=== PATIENT | female | born 1975 | race Caucasian/White ===

== ENCOUNTER 2021-07-09 04:16 | Day surgery (SDC) | payer OTHER ==
[2021-07-09] MEDS ORDERED: LACTATED RINGERS SOLUTION 1000 ML INFUS.BAG IV ONE (04:53)
[2021-07-09] MEDS ORDERED: ACETAMINOPHEN 1000 MG/100 ML BAG IVPB ONE (04:53)
[2021-07-09] MEDS ORDERED: morphine SULFATE IMMEDIATE RELEASE 30 MG TAB PO ONE (04:56)
[2021-07-09] MEDS ORDERED: ACETAMINOPHEN INJECTION 100 ML IVPB ONE (05:10)
[2021-07-09] MEDS ORDERED: morphine SULFATE IMMEDIATE RELEASE 30 MG TAB ONE (05:10)
[2021-07-09] MEDS ORDERED: ONDANSETRON 4 MG/2 ML VIAL IVPUSH ONE ×2 (06:01→09:30)
[2021-07-09] MEDS ORDERED: ONDANSETRON 4 MG/2 ML VIAL ONE ×2 (06:03→10:05)
[2021-07-09 06:27] LABS: CHLORIDE 105 mmol/L (98-107); SODIUM 137 mmol/L (136-145)
[2021-07-09 06:29] LABS: CALCIUM 8.9 mg/dL (8.5-10.1); EPI CELLS 35 /uL (0-25.1); HYALINE CASTS 1 /uL (0-3.1); PH,URINE 8.5 (5.0-8.0); URINE APPEARANCE TURBID; URINE BACTERIA 450 /uL (0-1359); URINE BILIRUBIN NEGATIVE (NEGATIVE); URINE COLOR YELLOW; URINE GLUCOSE (UA) TRACE (NEGATIVE); URINE KETONE TRACE (NEGATIVE); URINE LEUK ESTERASE NEGATIVE (NEGATIVE); URINE NITRITE NEGATIVE (NEGATIVE); URINE PROTEIN 2+ (NEGATIVE); URINE RBC 7 /uL (0-23.9); URINE WBC 11 /uL (0-25.8)
[2021-07-09 06:30] LABS: ANION GAP 4 MMOL/L (8-16); BLOOD UREA NITROGEN 15.8 mg/dL (7-18); CO2 27 mmol/L (21-32); GLUCOSE,RANDOM 259 mg/dL (74-106); LIPASE 70 U/L (73-393)
[2021-07-09 06:33] LABS: CREATININE 0.9 mg/dL (0.55-1.3); SGOT/AST 33 U/L (15-37); SGPT/ALT 49 U/L (13-61)
[2021-07-09 06:34] LABS: BILIRUBIN,TOTAL 0.4 mg/dL (0.2-1); TOT PROT 7.9 g/dl (6.4-8.2)
[2021-07-09 06:36] LABS: ALK PHOS 145 U/L (45-117)
[2021-07-09 06:37] LABS: INR 0.97 (0.83-1.09); PROTHROMBIN TIME (PATIENT) 11.4 SEC (9.7-13.0)
[2021-07-09 06:40] LABS: ACTIVATED PTT 24.8 SECONDS (25.2-36.5)
[2021-07-09 06:41] LABS: BASO % 0.3 % (0-2.0); EOS % 0.5 % (0-4.5); HEMOGLOBIN 13.9 GM/dL (10.7-15.3); LYMPH % 11.8 % (8-40); MCH 31.1 pg (25.7-33.7); MCHC 34.6 g/dl (32.0-36.0); MEAN CELL VOLUME 89.9 fl (80-96); MEAN PLT VOLUME 7.4 fl (7.5-11.1); MONO % 4.4 % (3.8-10.2); PLATELET COUNT 310 10^3/uL (134-434); RBC 4.45 M/mm3 (3.60-5.2); RDW 13.6 % (11.6-15.6); WHITE BLOOD COUNT 11.3 K/mm3 (4.0-10.0)
[2021-07-09] MEDS ORDERED: metFORMIN HCL 500 MG TABLET (FP) PO ONE (06:42)
[2021-07-09] MEDS ORDERED: metFORMIN HCL 500 MG TABLET (FP) ONE (06:47)
[2021-07-09] MEDS ORDERED: PIPERACILLIN/TAZOB 4.5 GM 4.5 GM in DEXTROSE 5%-WATER 100 ML IVPB ONE (09:30)
[2021-07-09] MEDS ORDERED: morphine CARPU-JECT 4 MG/1 ML DISP.SYRIN IVPUSH ONE (09:30)
[2021-07-09] MEDS ORDERED: LACTATED RINGERS SOLUTION 1,000 ML/1,000 ML INFUS.BAG IV SCH (09:45)
[2021-07-09] MEDS ORDERED: morphine SULFATE 4 MG/ML VIAL ONE (10:04)
[2021-07-09] MEDS ORDERED: PIPERACILLIN/TAZOB 4.5 GM 4.5 GM/100 ML BAG IVPB ONE (10:05)
[2021-07-09] MEDS ORDERED: ACETAMINOPHEN 1000 MG/100 ML BAG IVPB PRN (11:45)
[2021-07-09] MEDS ORDERED: ONDANSETRON 4 MG/2 ML VIAL IVPB PRN (11:46)
[2021-07-09] MEDS: LACTATED RINGERS SOLUTION 1,000 ML/1,000 ML INFUS.BAG IV SCH (15:23)
[2021-07-09 15:53] VITALS: BMI 34.9
[2021-07-09] MEDS ORDERED: DEXTROSE 5%-WATER 100 ML IVPB ONE (17:22)
[2021-07-09] MEDS ORDERED: PIPERACILLIN/TAZOBACTAM 4.5 GM VIAL IVPB ONE (17:22)
[2021-07-09] MEDS: PIPERACILLIN/TAZOB 4.5 GM 4.5 GM in DEXTROSE 5%-WATER 100 ML IVPB SCH (17:25)
[2021-07-09] MEDS ORDERED: PIPERACILLIN/TAZOB 4.5 GM 4.5 GM in DEXTROSE 5%-WATER 100 ML IVPB SCH (18:00)
[2021-07-10] MEDS ORDERED: PIPERACILLIN/TAZOBACTAM 4.5 GM VIAL IVPB ONE ×2 (01:58→09:30)
[2021-07-10] MEDS ORDERED: DEXTROSE 5%-WATER 100 ML IVPB ONE ×2 (01:58→09:31)
[2021-07-10] MEDS: PIPERACILLIN/TAZOB 4.5 GM 4.5 GM in DEXTROSE 5%-WATER 100 ML IVPB SCH ×2 (02:26→09:33)
[2021-07-10] MEDS: LACTATED RINGERS SOLUTION 1,000 ML/1,000 ML INFUS.BAG IV SCH (02:26)
[2021-07-10 09:02] LABS: CALCIUM 8.8 mg/dL (8.5-10.1)
[2021-07-10 09:03] LABS: BLOOD UREA NITROGEN 9.5 mg/dL (7-18)
[2021-07-10 09:17] LABS: CREATININE 0.7 mg/dL (0.55-1.3)
[2021-07-10] MEDS ORDERED: BUPIVACAINE HCL/PF 0.5% (5MG/ML) 10 ML VIAL ONE (10:37)
[2021-07-10 10:41] LABS: BASO % 0.1 % (0-2.0); HEMOGLOBIN 12.6 GM/dL (10.7-15.3); LYMPH % 4.8 % (8-40); MCH 30.8 pg (25.7-33.7); MCHC 34.1 g/dl (32.0-36.0); MEAN CELL VOLUME 90.1 fl (80-96); MEAN PLT VOLUME 7.5 fl (7.5-11.1); MONO % 6.6 % (3.8-10.2); NEUT % 88.5 % (42.8-82.8); PLATELET COUNT 281 10^3/uL (134-434); RBC 4.11 M/mm3 (3.60-5.2); RDW 14.2 % (11.6-15.6); WHITE BLOOD COUNT 17.9 K/mm3 (4.0-10.0)
[2021-07-10] MEDS ORDERED: fentaNYL CITRATE 250 MCG/5 ML VIAL ONE (10:48)
[2021-07-10] MEDS ORDERED: ROCURONIUM BROMIDE 50 MG/5 ML SYRINGE ONE (10:49)
[2021-07-10] MEDS ORDERED: MIDAZOLAM HCL 2 MG/2 ML SINGLE DOSE VIAL ONE (10:49)
[2021-07-10] MEDS ORDERED: BUPIVACAINE HCL/PF 0.5% (5 MG/ML) 30 ML VIAL IJ ONE (11:24)
[2021-07-10] MEDS ORDERED: KETOROLAC TROMETHAMINE 30 MG/1 ML VIAL ONE (12:59)
[2021-07-10] MEDS ORDERED: DEXAMETHASONE SOD PHOSPHATE 4 MG/1 ML VIAL ONE (12:59)
[2021-07-10] MEDS ORDERED: oxyCODONE HCL 5 MG TABLET PO PRN ×2 (14:52)
[2021-07-10] MEDS ORDERED: LACTATED RINGERS SOLUTION 1,000 ML/1,000 ML INFUS.BAG IV SCH (14:58)
[2021-07-10] MEDS ORDERED: ONDANSETRON 4 MG/2 ML VIAL IVPB PRN (14:58)
[2021-07-10] MEDS ORDERED: MELATONIN 5 MG TABLETS PO PRN (18:13)
[2021-07-10] MEDS ORDERED: ROSUVASTATIN CA 20 MG TABLET PO SCH (22:00)
[2021-07-10] MEDS: ROSUVASTATIN CA 20 MG TABLET PO SCH (22:45)
[2021-07-11 09:04] LABS: BLOOD UREA NITROGEN 14.4 mg/dL (7-18)
[2021-07-11 09:07] LABS: CREATININE 0.7 mg/dL (0.55-1.3)
[2021-07-11 09:09] LABS: CALCIUM 8.3 mg/dL (8.5-10.1)
[2021-07-11 09:18] LABS: HEMATOCRIT 33.9 % (32.4-45.2); HEMOGLOBIN 11.4 GM/dL (10.7-15.3); MCH 30.6 pg (25.7-33.7); MCHC 33.5 g/dl (32.0-36.0); MEAN CELL VOLUME 91.2 fl (80-96); MEAN PLT VOLUME 7.6 fl (7.5-11.1); PLATELET COUNT 279 10^3/uL (134-434); RBC 3.72 M/mm3 (3.60-5.2); RDW 13.8 % (11.6-15.6); WHITE BLOOD COUNT 13.9 K/mm3 (4.0-10.0)
[2021-07-11] MEDS: PIPERACILLIN/TAZOB 4.5 GM 4.5 GM in DEXTROSE 5%-WATER 100 ML IVPB SCH ×3 (19:02→19:06)
[2021-07-11] MEDS ORDERED: PIPERACILLIN/TAZOBACTAM 4.5 GM VIAL IVPB ONE (19:04)
[2021-07-11] MEDS ORDERED: DEXTROSE 5%-WATER 100 ML IVPB ONE (19:04)
[2021-07-11] MEDS ORDERED: PIPERACILLIN/TAZOB 4.5 GM 4.5 GM in DEXTROSE 5%-WATER 100 ML IVPB SCH (19:15)
[2021-07-11] MEDS: ROSUVASTATIN CA 20 MG TABLET PO SCH (22:13)
[2021-07-12] MEDS ORDERED: PIPERACILLIN/TAZOBACTAM 4.5 GM VIAL IVPB ONE ×3 (03:32→12:17)
[2021-07-12] MEDS ORDERED: DEXTROSE 5%-WATER 100 ML IVPB ONE ×3 (03:32→12:17)
[2021-07-12] MEDS: PIPERACILLIN/TAZOB 4.5 GM 4.5 GM in DEXTROSE 5%-WATER 100 ML IVPB SCH ×2 (03:39→12:22)
[2021-07-12 05:49] VITALS: PULSE 99; TEMP 98.4
[2021-07-12 08:33] LABS: HEMATOCRIT 34.4 % (32.4-45.2); HEMOGLOBIN 11.7 GM/dL (10.7-15.3); MCH 30.6 pg (25.7-33.7); MEAN PLT VOLUME 7.1 fl (7.5-11.1); PLATELET COUNT 324 10^3/uL (134-434); RBC 3.81 M/mm3 (3.60-5.2); RDW 13.9 % (11.6-15.6); WHITE BLOOD COUNT 10.6 K/mm3 (4.0-10.0)
[2021-07-12 08:46] LABS: CALCIUM 8.4 mg/dL (8.5-10.1)
[2021-07-12 08:47] LABS: BLOOD UREA NITROGEN 17.8 mg/dL (7-18)
[2021-07-12 08:50] LABS: CREATININE 0.7 mg/dL (0.55-1.3)
[2021-07-12] MEDS ORDERED: ENOXAPARIN NA (PORCINE) 40 MG/0.4 ML DISP.SYRIN SQ SCH (10:00)
[2021-07-12] MEDS ORDERED: PT OWN MED DRAWER 7, Y5N ONE (12:29)
[2021-07-12 15:23] VITALS: BP 127/82
== END 2021-07-12 17:46 | disposition home or self-care (01) ==
LOC: JER 04:16 → JERBED 09:43 → UNDOADMIN 09:43 → J8W 15:33 → JERBED 15:33 → JASUSAT 15:34 → SUATTDRO 15:34 → J8W 07-10 14:25 → JASUSAT 07-12 17:46
PROVIDERS: ATTEND Internal Medicine
PROC: 0FT44ZZ Resection of Gallbladder, Percutaneous Endoscopic Approach (ICD-10-PCS; principal; 2021-07-10 10:30)
DX: K81.0 Acute cholecystitis (principal)
CPT/HCPCS: 36415; 71046-TC-FY; 74176-TC; 76705-TC; 80048; 80053; 81003; 82550; 83036; 83690; 84484; 84703; 85025; 85027; 85610; 85730; 86850; 86900; 86901; 87086; 88304-TC; 93005; 93010; 94760; 97116-GP; 97161-GP; 99285-25; C9803; J0131; U0003; U0005

== ENCOUNTER 2023-08-23 04:24 | Day surgery (SDC) | payer OTHER ==
[2023-08-20 16:38] VITALS: BMI 36.8
[2023-08-23 10:26] VITALS: TEMP 98.7
[2023-08-23 10:52] VITALS: RESP 22
[2023-08-23 10:53] VITALS: BP 105/66; PULSE 95
== END 2023-08-23 11:05 | disposition home or self-care (01) ==
LOC: JASU-ENDO 04:24
PROVIDERS: ATTEND Internal Medicine Gastroenterology
PROC: 0DBL8ZX Excision of Transverse Colon, Via Natural or Artificial Opening Endoscopic, Diagnostic (ICD-10-PCS; 2023-08-23)
PROC: 0DBN8ZX Excision of Sigmoid Colon, Via Natural or Artificial Opening Endoscopic, Diagnostic (ICD-10-PCS; principal; 2023-08-23 10:00)
DX: Z12.11 Encounter for screening for malignant neoplasm of colon (principal); D12.3 Benign neoplasm of transverse colon; D12.5 Benign neoplasm of sigmoid colon; K64.8 Other hemorrhoids; K57.30 Diverticulosis of large intestine without perforation or abscess without bleeding; Z83.719 Family history of colon polyps, unspecified; I10 Essential (primary) hypertension; E11.9 Type 2 diabetes mellitus without complications; Z79.84 Long term (current) use of oral hypoglycemic drugs
CPT/HCPCS: 88305-TC